=== PATIENT | female | born 1970 | race Two or more races ===

== ENCOUNTER 2020-10-09 05:47 | Day surgery (SDC) | payer OTHER ==
[2020-10-09] MEDS ORDERED: PEPCID AC20 MG PO (08:49)
== END 2020-10-09 10:25 | disposition home or self-care (01) ==
LOC: AMB-ENDOS 05:47
PROVIDERS: ATTEND Surgery
DX: D13.0 Benign neoplasm of esophagus (principal); K44.9 Diaphragmatic hernia without obstruction or gangrene; Z20.822 Contact with and (suspected) exposure to COVID-19